=== PATIENT | female | born 1955 | race African-American/Black ===

== ENCOUNTER → 2021-01-04 | Outpatient (CLI) | payer OTHER ==
--- NOTE | 2021-01-04 09:17 | RAD ---
EXAM: Right knee, 2 views; lumbar spine, 2 views. HISTORY: Pain. COMPARISON: None. FINDINGS: Right knee: 2 views of the right knee are obtained. There is tricompartmental spurring. There is luce ncy within the lateral optimal tibial metaphysis likely due to a large degenerative subchondral cyst. There is no significant joint effusion. There is no fracture, dislocation or subluxation. Lumbar spine: 2 views of the lumbar spine are obtained. There is no significant listhesis. The verteb ral bodies are normal in height. There is multilevel endplate remodeling and facet arthropathy. IMPRESSION: 1. Mild tricompartmental osteoarthritis of the right knee. 2. 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 3. No acute osseous finding. Electronically signed by: Elizabeth Chaudhry MD (01/04/2021 9:14 AM) [id number]
== END ==
LOC: RAD 08:36
PROVIDERS: ATTEND Anesthesiology Pain Medicine
DX: Z02.71 Encounter for disability determination (principal); M17.11 Unilateral primary osteoarthritis, right knee; M47.816 Spondylosis without myelopathy or radiculopathy, lumbar region
CPT/HCPCS: 72100; 73560